=== PATIENT | female | born 1980 | race Caucasian/White ===

== ENCOUNTER 2024-09-05 10:09 | Emergency (ER) | payer SELFPAY ==
--- NOTE | 2024-09-05 10:16 | ED_ITS ---
HPI - Skin/Abscess/Foreign Bdy General Chief complaint: Skin/Abscess/Foreign Body Stated complaint: CYST BEHIND R EAR Time Seen by Provider: 09/05/24 10:16 Source: patient Mode of arrival: ambulatory Limitations: no limitations History of Present Illness HPI narrative: Hiral is a 44-year-old female patient presenting to the clinic today with complaints of a cyst behind her ear for approximately 4-5 days. Cysts is become more tender and fluctuant. History of skin cyst in the past. No fevers, chills, body aches. Related Data Home Medications Medication Instructions Recorded Confirmed Last Taken Type Estradiol .Route 03/26/24 03/27/24 Unknown History Tirzepatide Compound .Route 03/26/24 03/27/24 Unknown History ascorbic acid (vitamin C) 1,000 mg 1 g PO DAILY 03/26/24 03/27/24 Unknown History capsule multivitamin (Daily Multi-Vitamin 1 tablet PO DAILY 03/26/24 03/27/24 Unknown History tablet) omeprazole 20 mg capsule,delayed 20 mg PO DAILY 03/26/24 03/27/24 Unknown History release Allergies Allergy/AdvReac Type Severity Reaction Status Date / Time No Known Allergies Allergy Verified 09/05/24 10:37 Review of Systems Review of Systems: Pertinent positives per HPI. Patient denies any fever, chills, rash, headache, visual changes, dizziness, cough, runny nose, sore throat, shortness of breath, chest pain, palpitations, nausea, vomiting, diarrhea, constipation, abdominal pain, or any urinary issues. PMFSH Past Medical History Medical History Migraine Headache Family History Family History Father History of ETOH abuse Cancer Depression Anxiety Mother Hypertension Sibling History of ETOH abuse Depression Anxiety Grandparent Cancer Grandparent History of ETOH abuse Cancer Hypertension Anxiety Depression Cerebrovascular accident Social History Social History Smoking status: Current every day smoker Tobacco type: e-cigarettes/vaping Second hand tobacco smoke exposure: No Alcohol intake: never Substance use type: does not use Do You Feel Safe in your Home?: Yes Lack of Transportation: No Lack of Food: Never True Current Housing: I Have Housing Concerned About Future Housing: No Difficulty Paying Gas/Electric Bills: No Difficulty Paying for Meds: No Currently Unemployed: No Education: Bachelor's Degree Difficulty w/ Childcare or Family Care: No Living arrangements: with family Occupation/Education: occupation Additional occupation/education comments: Real Estate Gender identity (if verbalized by the patient): Female Agree to blood products: Yes Comments At the time of my signature, I reviewed and agree with the nursing past medical, surgical, social, and family history. There is no relevant family history pertinent to the patient complaint. Exam Narrative: General: Well-developed, well nourished, in no apparent distress Head: Normocephalic, atraumatic. Cardio: Regular rate and rhythm, s1 and s2 normal, no murmur appreciated. Resp: Clear to auscultation bilaterally, no rhonchi, rales, wheezing or rubs. Integumentary: [place], warm, and dry, approximate 2 x 2 cm skin cyst to the posterior right ear lobe, fluctuant, red, and tender. Course Course Emergency Course: Portions of this record may have been created with voice recognition software. Level of Care: Express Care Visit Vital Signs Vital signs: Vital Signs Temperature 36.6 C 09/05/24 10:19 Pulse Rate 98 09/05/24 10:19 Respiratory Rate 16 09/05/24 10:19 Blood Pressure 120/80 09/05/24 10:19 Pulse Oximetry 99 09/05/24 10:19 Temperature 36.6 C 09/05/24 10:19 Pulse Rate 98 09/05/24 10:19 Respiratory Rate 16 09/05/24 10:19 Blood Pressure 120/80 09/05/24 10:19 Pulse Oximetry 99 09/05/24 10:19 Vital signs reviewed Procedures Abscess I/D Right ear: Date of Incision: 09/05/24 Side (if applicable): right Technique: needle aspiration Amount of fluid expressed (mL): 0.25 Irrigation: No Packing used?: none I&D Results: Pus and Blood Complications: other (None) Abcess I&D Additional Comments: Verbal consent obtained for incision and drainage. Risk and benefits explained and patient voiced understanding. Area was cleansed with alcohol Area was prepped and draped using sterile technique. Eighteen gauge needle was then used to complete needle aspiration. White bloody exudate expressed from cavity. Wound culture obtained and sent to lab. Patient tolerated procedure well. MDM - Skin/Abscess/Foreign Bdy MDM Narrative Medical decision making narrative: At the time of visit patient is resting comfortably on the exam table. Patient appears to be nontoxic. Plan: I suspect patient has infected cyst behind the right earlobe. Incision and drainage was performed and wound culture was obtained. Will place patient on clindamycin. States she gets nauseous with taking antibiotics so will send in prescription for some Zofran as well. Supportive measures were discussed with the patient and they voiced understanding discharge instructions and agrees to treatment plan. Return precautions reviewed Differential Diagnosis Differential diagnosis: Likely abscess of skin or subcutaneous tissue and cellulitis Discharge Plan Discharge Clinical Impression: Infected cyst of skin Patient Disposition: Home Condition: Stable Instructions: Antibiotic Form, Cyst (ED) Additional Instructions: Wash area daily with soap and water May apply warm compress to the area to help alleviate drainage May take Tylenol/Motrin as needed for pain Wound culture was obtained and sent to the lab Take clindamycin and Zofran as prescribed Follow-up with your primary care doctor Patient Language: Ukrainian Prescriptions: New clindamycin HCl [Cleocin HCl] 300 mg capsule 300 mg PO Q8H 7 Days Qty: 21 0RF ondansetron 4 mg tablet,disintegrating 4 mg PO Q6H PRN (Reason: nausea and vomiting) 3 Days Qty: 12 0RF No Action Estradiol .Route Rx Instructions: 10mcg 2 x Week omeprazole 20 mg capsule,delayed release(DR/EC) 20 mg PO DAILY Tirzepatide Compound .Route Rx Instructions: 5mg weekly injection multivitamin [Daily Multi-Vitamin] Tablet 1 tablet PO DAILY ascorbic acid (vitamin C) 1,000 mg capsule 1 g PO DAILY Follow-up/Referrals: Aditi Pickard APRN [Primary Care Provider] - Time of Disposition: 10:37 Quality NIHSS Nursing Documentation ED NIHSS nursing documentation: reviewed/agree
[2024-09-05 10:19] VITALS: BP 120/80; PULSE 98; RESP 16; TEMP 36.6; O2SAT 99
== END 2024-09-05 10:41 | disposition home or self-care (01) ==
PROVIDERS: Emergency Provider Nurse Practitioner Family; PCP Nurse Practitioner Adult Health
DX: L72.9 Follicular cyst of the skin and subcutaneous tissue, unspecified (principal); F17.290 Nicotine dependence, other tobacco product, uncomplicated
CPT/HCPCS: 10160; 87070; 87075; 87205; 99213; G0463